=== PATIENT | female | born 1945 | race Caucasian/White ===

== ENCOUNTER → 2022-06-06 | Outpatient (CLI) | payer MEDICARE, OTHER ==
[2022-06-06 19:50] LABS: Free Thyroxine 1.09 ng/dL (0.70-1.60); Thyroid Stimulating Hormone 3.4 uIU/mL (0.360-4.800)
== END | disposition home or self-care (01) ==
LOC: LAB SHORT 15:10 → LAB 15:10
PROVIDERS: Family Medicine
DX: E03.9 Hypothyroidism, unspecified (principal)
CPT/HCPCS: 84439; 84443